=== PATIENT | female | born 1965 | race Caucasian/White ===

== ENCOUNTER 2017-05-13 22:18 | Emergency (ER) | payer OTHER ==
[2017-05-13] MEDS ORDERED: Ketorolac Tromethamine 60 MG/2 ML VIAL ONE (22:59)
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
== END 2017-05-13 23:15 | disposition home or self-care (01) ==
LOC: NAV ERS 22:18
DX: S63.502A Unspecified sprain of left wrist, initial encounter (principal); S20.212A Contusion of left front wall of thorax, initial encounter; F41.9 Anxiety disorder, unspecified; F31.9 Bipolar disorder, unspecified; F20.9 Schizophrenia, unspecified; F17.210 Nicotine dependence, cigarettes, uncomplicated; Y04.2XXA Assault by strike against or bumped into by another person, initial encounter
CPT/HCPCS: 71046; 96372; J1885

== ENCOUNTER 2017-06-05 13:08 | Emergency (ER) | payer OTHER ==
[2017-06-05] MEDS ORDERED: Ondansetron ODT 4 MG TAB ONE (13:39)
[2017-06-05] MEDS ORDERED: Meclizine HCl 25 MG TAB ONE (13:46)
== END 2017-06-05 14:15 | disposition home or self-care (01) ==
LOC: NAV ERS 13:08
DX: H81.10 Benign paroxysmal vertigo, unspecified ear (principal); B37.3 Candidiasis of vulva and vagina; B19.20 Unspecified viral hepatitis C without hepatic coma; F41.9 Anxiety disorder, unspecified; F31.9 Bipolar disorder, unspecified; F17.210 Nicotine dependence, cigarettes, uncomplicated
CPT/HCPCS: 36416; 93005; Q0162

== ENCOUNTER 2017-08-17 19:32 | Emergency (ER) | payer OTHER ==
[2017-08-17] MEDS ORDERED: Lidocaine 1% 20 ML MDV ONE (19:55)
[2017-08-17] MEDS ORDERED: Cephalexin 250 MG CAP ONE (20:30)
[2017-08-17] MEDS ORDERED: Sulfameth/Trimethoprim DS 800-160mg TAB ONE (20:30)
[2017-08-17] MEDS ORDERED: Ondansetron ODT 4 MG TAB ONE (20:35)
== END 2017-08-17 20:45 | disposition home or self-care (01) ==
LOC: NAV ERS 19:32
DX: L02.412 Cutaneous abscess of left axilla (principal); J44.9 Chronic obstructive pulmonary disease, unspecified; F41.9 Anxiety disorder, unspecified; F31.9 Bipolar disorder, unspecified; F17.210 Nicotine dependence, cigarettes, uncomplicated; Z79.899 Other long term (current) drug therapy
CPT/HCPCS: 10061; J2001; Q0162

== ENCOUNTER 2017-12-15 09:10 | Emergency (ER) | payer OTHER ==
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
== END 2017-12-15 10:10 | disposition home or self-care (01) ==
LOC: NAV ERS 09:10
DX: S51.812A Laceration without foreign body of left forearm, initial encounter (principal); F41.9 Anxiety disorder, unspecified; F31.9 Bipolar disorder, unspecified; F20.9 Schizophrenia, unspecified; F17.210 Nicotine dependence, cigarettes, uncomplicated; J44.9 Chronic obstructive pulmonary disease, unspecified; W22.8XXA Striking against or struck by other objects, initial encounter

== ENCOUNTER 2018-02-02 06:33 | Emergency (ER) | payer OTHER | END 2018-02-02 06:55 | disposition home or self-care (01) | LOC: NAV ERS 06:33 | DX: K02.9 Dental caries, unspecified (principal); J44.9 Chronic obstructive pulmonary disease, unspecified; F41.9 Anxiety disorder, unspecified; F31.9 Bipolar disorder, unspecified; F20.9 Schizophrenia, unspecified; F17.210 Nicotine dependence, cigarettes, uncomplicated | CPT/HCPCS: 99282 ==

== ENCOUNTER 2018-02-15 08:55 | Emergency (ER) | payer OTHER ==
[2018-02-15] MEDS ORDERED: diphenhydrAMINE 50 MG/ML VIAL ONE (09:15)
[2018-02-15] MEDS ORDERED: Metoclopramide HCl 10 MG/2 ML VIAL ONE (09:16)
== END 2018-02-15 09:30 | disposition home or self-care (01) ==
LOC: NAV ERS 08:55
DX: R51 Headache (principal); R11.2 Nausea with vomiting, unspecified; K08.89 Other specified disorders of teeth and supporting structures; J44.9 Chronic obstructive pulmonary disease, unspecified; F31.9 Bipolar disorder, unspecified; F41.9 Anxiety disorder, unspecified; F20.9 Schizophrenia, unspecified; F17.210 Nicotine dependence, cigarettes, uncomplicated
CPT/HCPCS: 96372; J1200; J2765

== ENCOUNTER 2018-03-20 10:25 | Emergency (ER) | payer OTHER | END 2018-03-20 10:57 | disposition home or self-care (01) | LOC: NAV ERS 10:25 | DX: M25.511 Pain in right shoulder (principal); J44.9 Chronic obstructive pulmonary disease, unspecified; F31.9 Bipolar disorder, unspecified; F17.210 Nicotine dependence, cigarettes, uncomplicated; F41.9 Anxiety disorder, unspecified | CPT/HCPCS: 99281 ==

== ENCOUNTER 2018-06-17 09:43 | Emergency (ER) | payer MEDICAID, OTHER | END 2018-06-17 10:28 | disposition home or self-care (01) | LOC: NAV ERS 09:43 | DX: J30.1 Allergic rhinitis due to pollen (principal); J44.9 Chronic obstructive pulmonary disease, unspecified; F31.9 Bipolar disorder, unspecified; F41.9 Anxiety disorder, unspecified; F20.9 Schizophrenia, unspecified; F17.210 Nicotine dependence, cigarettes, uncomplicated | CPT/HCPCS: 99283 ==

== ENCOUNTER 2018-10-28 10:25 | Emergency (ER) | payer OTHER | END 2018-10-28 10:40 | disposition home or self-care (01) | LOC: NAV ERS 10:25 | DX: R21 Rash and other nonspecific skin eruption (principal); F41.9 Anxiety disorder, unspecified; F31.9 Bipolar disorder, unspecified; F20.9 Schizophrenia, unspecified; F17.210 Nicotine dependence, cigarettes, uncomplicated; Z79.899 Other long term (current) drug therapy | CPT/HCPCS: 99281 ==

== ENCOUNTER 2018-11-15 09:51 | Emergency (ER) | payer OTHER | END 2018-11-15 10:40 | disposition home or self-care (01) | LOC: NAV ERS 09:51 | DX: K02.9 Dental caries, unspecified (principal); J44.9 Chronic obstructive pulmonary disease, unspecified; F41.9 Anxiety disorder, unspecified; F31.9 Bipolar disorder, unspecified; F20.9 Schizophrenia, unspecified; F17.210 Nicotine dependence, cigarettes, uncomplicated; Z79.899 Other long term (current) drug therapy | CPT/HCPCS: 99281 ==

== ENCOUNTER 2019-02-17 09:13 | Emergency (ER) | payer OTHER | END 2019-02-17 09:40 | disposition home or self-care (01) | LOC: NAV ERS 09:13 | DX: L03.012 Cellulitis of left finger (principal); J45.909 Unspecified asthma, uncomplicated; F41.9 Anxiety disorder, unspecified; F31.9 Bipolar disorder, unspecified; F20.9 Schizophrenia, unspecified; F17.210 Nicotine dependence, cigarettes, uncomplicated; Z48.02 Encounter for removal of sutures | CPT/HCPCS: 99282 ==

== ENCOUNTER 2019-03-04 09:46 | Emergency (ER) | payer OTHER | END 2019-03-04 10:19 | disposition home or self-care (01) | LOC: NAV ERS 09:46 | DX: T81.40XA Infection following a procedure, unspecified, initial encounter (principal); R11.2 Nausea with vomiting, unspecified; J44.9 Chronic obstructive pulmonary disease, unspecified; F41.9 Anxiety disorder, unspecified; F31.9 Bipolar disorder, unspecified; F20.9 Schizophrenia, unspecified; F17.210 Nicotine dependence, cigarettes, uncomplicated | CPT/HCPCS: 99283 ==

== ENCOUNTER 2019-03-27 18:18 | Emergency (ER) | payer OTHER ==
[2019-03-27] MEDS ORDERED: Ketorolac Tromethamine 60 MG/2 ML VIAL ONE (18:32)
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
== END 2019-03-27 20:00 | disposition home or self-care (01) ==
LOC: NAV ERS 18:18
DX: S22.32XA Fracture of one rib, left side, initial encounter for closed fracture (principal); J44.9 Chronic obstructive pulmonary disease, unspecified; F41.9 Anxiety disorder, unspecified; F31.9 Bipolar disorder, unspecified; F20.9 Schizophrenia, unspecified; F17.210 Nicotine dependence, cigarettes, uncomplicated; Z71.6 Tobacco abuse counseling; W01.198A Fall on same level from slipping, tripping and stumbling with subsequent striking against other object, initial encounter
CPT/HCPCS: 96372; 99406; J1885

== ENCOUNTER 2019-04-01 14:35 | Emergency (ER) | payer OTHER ==
[2019-04-01] MEDS ORDERED: Ketorolac Tromethamine 30 MG/ML VIAL ONE (14:51)
== END 2019-04-01 15:07 | disposition home or self-care (01) ==
LOC: NAV ERS 14:35
DX: R07.81 Pleurodynia (principal); G89.18 Other acute postprocedural pain; I10 Essential (primary) hypertension; J44.9 Chronic obstructive pulmonary disease, unspecified; F41.9 Anxiety disorder, unspecified; F31.9 Bipolar disorder, unspecified; F20.9 Schizophrenia, unspecified; F17.210 Nicotine dependence, cigarettes, uncomplicated
CPT/HCPCS: 96372; 99283; J1885

== ENCOUNTER 2019-04-08 13:19 | Emergency (ER) | payer OTHER ==
[2019-04-08] MEDS ORDERED: Sulfameth/Trimethoprim DS 800-160mg TAB ONE (13:36)
== END 2019-04-08 13:38 | disposition home or self-care (01) ==
LOC: NAV ERS 13:19
DX: L02.412 Cutaneous abscess of left axilla (principal); J44.9 Chronic obstructive pulmonary disease, unspecified; F41.9 Anxiety disorder, unspecified; F31.9 Bipolar disorder, unspecified; F20.9 Schizophrenia, unspecified; F17.210 Nicotine dependence, cigarettes, uncomplicated
CPT/HCPCS: 87070; 87077; 87186; 87205; 99283

== ENCOUNTER 2019-05-17 20:35 | Emergency (ER) | payer OTHER ==
[2019-05-17] MEDS ORDERED: Ondansetron ODT 4 MG TAB ONE (21:37)
[2019-05-17 21:51] LABS: Anisocytosis MODERATE=16-30 cells (100X) (0-5/hpf); Band 6 % (5-11); Burr Cells SLIGHT = 2-5 cells (100X) (0-1/hpf); Eosinophils 3 % (0-10); Hemoglobin 9.2 g/dL (12.0-16.0); Hypochromia MODERATE=16-30 cells (100X) (0-5/hpf); Lymphocytes 45 % (21-51); MDiff Complete? YES; Mean Corpuscular HGB CONC 29.5 g/dL (32.0-36.0); Mean Corpuscular Hemoglobin 21.1 pg (27.0-31.0); Mean Corpuscular Volume 71.7 fL (78.0-98.0); Mean Platelet Volume 6.3 fL (7.4-10.4); Microcytosis MODERATE=15-30 cells (100X) (0-5/hpf); Monocytes 2 % (0-10); Neutrophil 34 % (42-75); Platelet Count 600 thou/uL (130-400); Platelet Morphology Comment Appears Increased; Poikilocytosis MODERATE=16-30 cells (100X) (0-5/hpf); RBC Distribution Width 18.1 % (11.5-14.5); Reactive Lymphocytes 10 % (0-10); Red Blood Cell (RBC) Count 4.37 mill/uL (4.20-5.40); Spherocytes SLIGHT = 1-5 cells (100X) (None Seen); Target Cells SLIGHT = 2-5 cells (100X) (0-1/hpf); White Blood Cell (WBC) Count 10.8 thou/uL (4.8-10.8)
[2019-05-17 21:58] LABS: ALT (SGPT) 32 U/L (8-55); AST (SGOT) 33 U/L (5-34); Albumin 3.6 g/dL (3.5-5.0); Alkaline Phosphatase 131 U/L (40-110); Anion Gap 13 mmol/L (10-20); BUN (Urea Nitrogen) 14 mg/dL (9.8-20.1); Bilirubin, Total 0.2 mg/dL (0.2-1.2); Calc. Creatinine Clearance 0 mL/min (70-130); Calcium 8.8 mg/dL (7.8-10.44); Carbon Dioxide 24 mmol/L (22-29); Chloride 106 mmol/L (98-107); Estimated GFR-MDRD Greater than 90; Globulin 3.4 g/dL (2.4-3.5); Glucose 116 mg/dL (70-105); Potassium 3.5 mmol/L (3.5-5.1); Sodium 139 mmol/L (136-145)
== END 2019-05-17 22:08 | disposition home or self-care (01) ==
LOC: NAV ERS 20:35
DX: M79.10 Myalgia, unspecified site (principal); I10 Essential (primary) hypertension; J44.9 Chronic obstructive pulmonary disease, unspecified; F31.9 Bipolar disorder, unspecified; F41.9 Anxiety disorder, unspecified; F20.9 Schizophrenia, unspecified; F17.210 Nicotine dependence, cigarettes, uncomplicated; Z79.899 Other long term (current) drug therapy; G56.03 Carpal tunnel syndrome, bilateral upper limbs
CPT/HCPCS: 36415; 80053; 85025; 99283; Q0162

== ENCOUNTER 2019-06-29 13:29 | Emergency (ER) | payer OTHER ==
--- NOTE | 2019-06-29 14:12 | RAD ---
EXAM: Chest 2 views: HISTORY: Dyspnea COMPARISON: 05/13/2017 FINDINGS: There is a normal-sized cardiomediastinal silhouette. There is no evidence of consolidation, mass, or pleural effusion. Patient is status post right shoulder arthroplasty. IMPRESSION: No evidence of acute cardiopulmonary disease
== END 2019-06-29 14:45 | disposition home or self-care (01) ==
LOC: NAV ERS 13:29
DX: J06.9 Acute upper respiratory infection, unspecified (principal); F31.9 Bipolar disorder, unspecified; F41.9 Anxiety disorder, unspecified; F20.9 Schizophrenia, unspecified; F17.210 Nicotine dependence, cigarettes, uncomplicated; Z79.899 Other long term (current) drug therapy
CPT/HCPCS: 71046; 87081; 87430; 87804

== ENCOUNTER → 2019-07-03 | Emergency (ER) | payer OTHER ==
--- NOTE | 2019-07-03 20:22 | RAD ---
EXAM: 3 views of the right shoulder HISTORY: Shoulder pain COMPARISON: None FINDINGS: The patient is status post right shoulder arthroplasty without perihardware lucency or frac ture. Surgical changes are also seen near the acromioclavicular joint. The visualized thorax is unremarkable. IMPRESSION: No evidence of acute osseous abnormality.
--- NOTE | 2019-07-03 20:41 | RAD ---
EXAM: 2 views of the right humerus HISTORY: right arm pain COMPARISON: None FINDINGS: 2 views of the right humerus shows no evidence of acute fracture or dislocation. The patien t has a right shoulder prosthesis. There is lucency along the lateral aspect of the proximal humeral stem but this is likely chronic rather than acute. No soft tissue swelling is seen. IMPRESSION: No evidence of acute osseous abnormality.
== END ==
LOC: NAV ERS 19:27
DX: S40.011A Contusion of right shoulder, initial encounter (principal); J44.9 Chronic obstructive pulmonary disease, unspecified; F41.9 Anxiety disorder, unspecified; F31.9 Bipolar disorder, unspecified; F17.210 Nicotine dependence, cigarettes, uncomplicated; Z79.1 Long term (current) use of non-steroidal anti-inflammatories (NSAID); W06.XXXA Fall from bed, initial encounter

== ENCOUNTER 2019-11-19 14:55 | Emergency (ER) | payer OTHER | END 2019-11-19 15:35 | disposition home or self-care (01) | LOC: NAV ERS 14:55 | DX: S46.911A Strain of unspecified muscle, fascia and tendon at shoulder and upper arm level, right arm, initial encounter (principal); S96.811A Strain of other specified muscles and tendons at ankle and foot level, right foot, initial encounter; M19.011 Primary osteoarthritis, right shoulder; F17.210 Nicotine dependence, cigarettes, uncomplicated | CPT/HCPCS: 99283 ==

== ENCOUNTER 2020-02-26 10:51 | Emergency (ER) | payer OTHER ==
[2020-02-26] MEDS ORDERED: Metoclopramide HCl 10 MG/2 ML VIAL ONE (11:15)
[2020-02-26] MEDS ORDERED: Sodium Chloride 0.9% 1,000 ML ONE (11:15)
[2020-02-26 11:53] LABS: Bilirubin Negative (Negative); Blood, Urine Negative (Negative); Clarity Clear (Clear); Glucose, Urine (Dipstick) Negative (Negative); Ketone, Urine Negative (Negative); Leukocyte Negative (Negative); Nitrite Negative (Negative); Protein, Urine (Dipstick) Negative (Neg-Trace); Specific Gravity, Urine 1.025 (1.005-1.030)
[2020-02-26 11:59] LABS: Hemoglobin 11.2 g/dL (12.0-16.0); Mean Corpuscular HGB CONC 29.9 g/dL (32.0-36.0); Mean Corpuscular Hemoglobin 21.5 pg (27.0-31.0); Mean Corpuscular Volume 71.9 fL (78.0-98.0); Mean Platelet Volume 5.8 fL (7.4-10.4); Platelet Count 727 thou/uL (130-400); RBC Distribution Width 16.7 % (11.5-14.5); Red Blood Cell (RBC) Count 5.22 mill/uL (4.20-5.40); White Blood Cell (WBC) Count 11.7 thou/uL (4.8-10.8)
[2020-02-26 12:04] LABS: ALT (SGPT) 31 U/L (8-55); AST (SGOT) 50 U/L (5-34); Albumin 3.8 g/dL (3.5-5.0); Alkaline Phosphatase 90 U/L (40-110); Anion Gap 15 mmol/L (10-20); BUN (Urea Nitrogen) 16 mg/dL (9.8-20.1); Bilirubin, Total 0.3 mg/dL (0.2-1.2); CK (CPK) 38 U/L (29-168); Calc. Creatinine Clearance 0 mL/min (70-130); Calcium 9.1 mg/dL (7.8-10.44); Carbon Dioxide 27 mmol/L (22-29); Chloride 97 mmol/L (98-107); Estimated GFR-MDRD 83; Globulin 4.2 g/dL (2.4-3.5); Glucose 102 mg/dL (70-105); Lipase 29 U/L (8-78); Potassium 3.1 mmol/L (3.5-5.1); Sodium 136 mmol/L (136-145)
[2020-02-26] MEDS ORDERED: Potassium Chloride 20 MEQ TAB ONE (12:13)
[2020-02-26 12:26] LABS: #Basophils 0.2 thou/uL (0.0-0.2); #Eosinphils 0.4 thou/uL (0.0-0.7); #Monocytes 1.6 thou/uL (0.11-0.59); #Neutrophils 4.6 thou/uL (1.40-6.50); %Basophils 1.6 % (0.0-1.0); %Eosinophils 3.2 % (0.0-10.0); %Lymphocytes 42.8 % (21.0-51.0); %Monocytes 13.4 % (0.0-10.0); %Neutrophils 39.1 % (42.0-75.0); Anisocytosis SLIGHT = 6-15 cells (100X) (0-5/hpf); Band 1 % (5-11); Eosinophils 2 % (0-10); Hypochromia SLIGHT = 6-15 cells (100X) (0-5/hpf); Large Platelets SLIGHT; Lymphocytes 48 % (21-51); MDiff Complete? YES; Microcytosis MODERATE=15-30 cells (100X) (0-5/hpf); Monocytes 12 % (0-10); Neutrophil 37 % (42-75); Platelet Morphology Comment Appears Increased
[2020-02-27 15:08] LABS: SARS-CoV-2 MS2 Positive; SARS-CoV-2 N Gene Negative; SARS-CoV-2 S Gene Negative; SARS-CoV-2 by NAA Not Detected (NotDetected); SARS-CoV-2 orf1ab Negative
== END 2020-02-26 12:40 | disposition home or self-care (01) ==
LOC: NAV ERS 10:51
DX: R10.13 Epigastric pain (principal); R11.2 Nausea with vomiting, unspecified; R51.9 Headache, unspecified; Z20.828 Contact with and (suspected) exposure to other viral communicable diseases; I10 Essential (primary) hypertension; J44.9 Chronic obstructive pulmonary disease, unspecified; F41.9 Anxiety disorder, unspecified; F17.210 Nicotine dependence, cigarettes, uncomplicated
CPT/HCPCS: 80053; 81003; 82550; 83690; 84484; 85025; 87635; 93005; 94760; 96365; J2765; J7050; U0003

== ENCOUNTER 2020-03-05 09:15 | Emergency (ER) | payer OTHER | END 2020-03-05 09:33 | disposition left against medical advice (07) | LOC: NAV ERS 09:15 | DX: Z53.21 Procedure and treatment not carried out due to patient leaving prior to being seen by health care provider (principal) ==

== ENCOUNTER 2020-05-19 15:06 | Emergency (ER) | payer OTHER | END 2020-05-19 15:35 | disposition home or self-care (01) | LOC: NAV ERS 15:06 | DX: L30.9 Dermatitis, unspecified (principal); T14.8XXA Other injury of unspecified body region, initial encounter; G47.00 Insomnia, unspecified; I10 Essential (primary) hypertension | CPT/HCPCS: 99282 ==

== ENCOUNTER 2020-06-17 20:13 | Emergency (ER) | payer OTHER ==
[2020-06-17] MEDS ORDERED: Acetaminophen/Codeine 30-300mg Tablet ONE (20:44)
== END 2020-06-17 20:50 | disposition home or self-care (01) ==
LOC: NAV ERS 20:13
DX: K04.4 Acute apical periodontitis of pulpal origin (principal); K02.9 Dental caries, unspecified; I10 Essential (primary) hypertension; F17.210 Nicotine dependence, cigarettes, uncomplicated; Z79.899 Other long term (current) drug therapy
CPT/HCPCS: 99282

== ENCOUNTER 2020-08-01 08:58 | Emergency (ER) | payer OTHER | END 2020-08-01 09:30 | disposition home or self-care (01) | LOC: NAV ERS 08:58 | DX: K04.7 Periapical abscess without sinus (principal); K02.9 Dental caries, unspecified; I10 Essential (primary) hypertension; F17.210 Nicotine dependence, cigarettes, uncomplicated | CPT/HCPCS: 99283 ==

== ENCOUNTER 2020-09-06 11:26 | Emergency (ER) | payer OTHER | END 2020-09-06 11:56 | disposition left against medical advice (07) | LOC: NAV ERS 11:26 | DX: Z79.899 Other long term (current) drug therapy (principal); I10 Essential (primary) hypertension; F17.210 Nicotine dependence, cigarettes, uncomplicated ==

== ENCOUNTER 2020-10-30 08:31 | Emergency (ER) | payer OTHER | END 2020-10-30 09:11 | disposition home or self-care (01) | LOC: NAV ERS 08:31 | DX: F42.4 Excoriation (skin-picking) disorder (principal); I10 Essential (primary) hypertension; F17.210 Nicotine dependence, cigarettes, uncomplicated | CPT/HCPCS: 99282 ==

== ENCOUNTER 2020-11-05 07:30 | Emergency (ER) | payer OTHER ==
[2020-11-05 14:06] LABS: SARS-CoV-2 PCR by NAA Not Detected (NotDetected)
== END 2020-11-05 08:00 | disposition home or self-care (01) ==
LOC: NAV ERS 07:30
DX: R05 Cough (principal); R50.9 Fever, unspecified; R09.89 Other specified symptoms and signs involving the circulatory and respiratory systems; Z20.822 Contact with and (suspected) exposure to COVID-19
CPT/HCPCS: 99283; U0003; U0005

== ENCOUNTER 2020-12-11 09:09 | Emergency (ER) | payer OTHER ==
[2020-12-11 10:06] LABS: Bilirubin Negative (Negative); Blood, Urine Negative (Negative); Clarity Clear (Clear); Glucose, Urine (Dipstick) Negative (Negative); Ketone, Urine Negative (Negative); Leukocyte Negative (Negative); Nitrite Negative (Negative); Protein, Urine (Dipstick) Trace mg/dL (Neg-Trace); Urobilinogen 0.2 mg/dL (Less than 2)
[2020-12-11] MEDS ORDERED: Ketorolac Tromethamine 30 MG/ML VIAL ONE (10:07)
== END 2020-12-11 10:23 | disposition home or self-care (01) ==
LOC: NAV ERS 09:09
DX: M54.5 Low back pain (principal); I10 Essential (primary) hypertension; F17.210 Nicotine dependence, cigarettes, uncomplicated
CPT/HCPCS: 81003; 96372; 99283; J1885

== ENCOUNTER 2021-01-14 09:52 | Emergency (ER) | payer OTHER | END 2021-01-14 11:00 | disposition home or self-care (01) | LOC: NAV ERS 09:52 | DX: M25.552 Pain in left hip (principal); K08.89 Other specified disorders of teeth and supporting structures; K04.7 Periapical abscess without sinus; H92.02 Otalgia, left ear; I10 Essential (primary) hypertension; F17.210 Nicotine dependence, cigarettes, uncomplicated | CPT/HCPCS: 99281 ==

== ENCOUNTER 2021-04-05 07:40 | Emergency (ER) | payer OTHER ==
[2021-04-05] MEDS ORDERED: Ondansetron ODT 4 MG TAB ONE (08:28)
== END 2021-04-05 08:33 | disposition home or self-care (01) ==
LOC: NAV ERS 07:40
DX: J30.9 Allergic rhinitis, unspecified (principal); J32.9 Chronic sinusitis, unspecified; R11.2 Nausea with vomiting, unspecified; I10 Essential (primary) hypertension; F17.210 Nicotine dependence, cigarettes, uncomplicated; Z79.899 Other long term (current) drug therapy
CPT/HCPCS: 99283; Q0162

== ENCOUNTER 2021-08-09 19:20 | Emergency (ER) | payer OTHER ==
[2021-08-09] MEDS ORDERED: Orphenadrine Citrate 60 MG/2 ML VIAL ONE (19:50)
== END 2021-08-09 20:10 | disposition home or self-care (01) ==
LOC: NAV ERS 19:20
DX: M54.42 Lumbago with sciatica, left side (principal); I10 Essential (primary) hypertension; F17.210 Nicotine dependence, cigarettes, uncomplicated
CPT/HCPCS: 96372; 99283; J2360

== ENCOUNTER 2021-08-20 09:25 | Emergency (ER) | payer OTHER | END 2021-08-20 10:55 | disposition home or self-care (01) | LOC: NAV ERS 09:25 | DX: R25.2 Cramp and spasm (principal); I10 Essential (primary) hypertension; J44.9 Chronic obstructive pulmonary disease, unspecified; F17.210 Nicotine dependence, cigarettes, uncomplicated; Z79.899 Other long term (current) drug therapy | CPT/HCPCS: 99283 ==

== ENCOUNTER 2022-02-21 09:44 | Emergency (ER) | payer OTHER ==
[2022-02-21 11:28] LABS: #Basophils 0.2 thou/uL (0.0-0.2); #Eosinphils 0.3 thou/uL (0.0-0.7); #Lymphocytes 4.3 thou/uL (1.20-3.40); #Neutrophils 3.3 thou/uL (1.40-6.50); %Basophils 1.9 % (0.0-1.0); %Eosinophils 3.4 % (0.0-10.0); %Lymphocytes 47.2 % (21.0-51.0); %Neutrophils 36.4 % (42.0-75.0); Hemoglobin 10.1 g/dL (12.0-16.0); Mean Corpuscular HGB CONC 29.5 g/dL (32.0-36.0); Mean Corpuscular Hemoglobin 22.8 pg (27.0-31.0); Mean Corpuscular Volume 77.4 fl (78.0-98.0); Mean Platelet Volume 6.3 fL (7.4-10.4); Platelet Count 506 10x3/uL (130-400); RBC Distribution Width 16.6 % (11.5-14.5); Red Blood Cell (RBC) Count 4.43 mill/uL (4.20-5.40); White Blood Cell (WBC) Count 9.2 10x3/uL (4.8-10.8)
[2022-02-21 11:30] LABS: Acetaminophen Less than 10.0 mcg/mL (10.0-30.0); Alcohol Less than 10 mg/dL (Less than 10); Salicylate Less than 8.0 mg/dL (15.0-30.0)
[2022-02-21 11:32] LABS: ALT (SGPT) 27 U/L (8-55); AST (SGOT) 32 U/L (5-34); Albumin 3.9 g/dL (3.5-5.0); Alkaline Phosphatase 113 U/L (40-110); Anion Gap 12 mmol/L (10-20); BUN (Urea Nitrogen) 8 mg/dL (9.8-20.1); Bilirubin, Total 0.4 mg/dL (0.2-1.2); Calc. Creatinine Clearance 0 mL/min (70-130); Calcium 9.4 mg/dL (7.8-10.44); Carbon Dioxide 26 mmol/L (22-29); Chloride 104 mmol/L (98-107); Estimated GFR 106; Globulin 3.2 g/dL (2.4-3.5); Glucose 100 mg/dL (70-105); Potassium 3.9 mmol/L (3.5-5.1); Protein, Total 7.1 g/dL (6.0-8.3); Sodium 138 mmol/L (136-145)
[2022-02-21] MEDS ORDERED: Acetaminophen 500 MG TAB ONE (11:42)
[2022-02-21 11:46] LABS: Bilirubin Negative (Negative); Blood, Urine Negative (Negative); Clarity Clear (Clear); Glucose, Urine (Dipstick) Negative (Negative); Ketone, Urine Negative (Negative); Leukocyte Trace (Negative); Nitrite Negative (Negative); Protein, Urine (Dipstick) 30 mg/dL (Neg-Trace); pH, Urine 6.5 (5.0-9.0)
[2022-02-21 11:51] LABS: Specific Gravity, Urine 1.024 (1.002-1.036)
[2022-02-21 11:55] LABS: RBC/HPF None Seen HPF (0-3)
[2022-02-21 11:56] LABS: Bacteria/HPF Rare-Few HPF (None Seen); WBC/HPF 0-3 HPF (0-3)
[2022-02-21 11:58] LABS: Cocaine Metabolite Screen Detected (NotDetected); Phencyclidine (PCP) Not Detected (NotDetected); THC/Cannabinoid Screen Detected (NotDetected)
[2022-02-21 11:59] LABS: Amphetamine Not Detected (NotDetected); Barbiturates Screen Not Detected (NotDetected); Benzodiazepine Screen Not Detected (NotDetected); Medtox Control Line Valid? VALID (VALID); Methadone Not Detected (NotDetected); Methamphetamine Not Detected (NotDetected); Opiate Screen Not Detected (NotDetected); Oxycodone Screen Not Detected (NotDetected); Tricyclic Screen Not Detected (NotDetected)
[2022-02-21] MEDS ORDERED: Ondansetron ODT 4 MG TAB ONE (12:08)
[2022-02-21 13:37] LABS: SARS-CoV-2 NAA Rapid Test Not Detected (NotDetected)
== END 2022-02-21 18:55 ==
LOC: NAV ERS 09:44
DX: S40.812A Abrasion of left upper arm, initial encounter (principal); S40.811A Abrasion of right upper arm, initial encounter; F12.90 Cannabis use, unspecified, uncomplicated; F14.10 Cocaine abuse, uncomplicated; R22.43 Localized swelling, mass and lump, lower limb, bilateral; D64.9 Anemia, unspecified; F17.210 Nicotine dependence, cigarettes, uncomplicated; I10 Essential (primary) hypertension; J45.909 Unspecified asthma, uncomplicated; X58.XXXA Exposure to other specified factors, initial encounter; Z79.899 Other long term (current) drug therapy; Z20.822 Contact with and (suspected) exposure to COVID-19
CPT/HCPCS: 80053; 80306; 80307; 81003; 81015; 84443; 85025; 99285; Q0162; U0002

== ENCOUNTER 2022-06-20 09:29 | Emergency (ER) | payer OTHER ==
[2022-06-20] MEDS ORDERED: Hydrocortisone 1% Cream 30 GM TUBE TOP SCH (10:30)
== END 2022-06-20 10:30 | disposition home or self-care (01) ==
LOC: NAV ERS 09:29
DX: T78.40XA Allergy, unspecified, initial encounter (principal); R59.0 Localized enlarged lymph nodes; I10 Essential (primary) hypertension; J44.9 Chronic obstructive pulmonary disease, unspecified; F17.210 Nicotine dependence, cigarettes, uncomplicated
CPT/HCPCS: 99283

== ENCOUNTER 2022-10-19 11:27 | Emergency (ER) | payer OTHER ==
[2022-10-19] MEDS ORDERED: Ketorolac Tromethamine 30 MG/ML VIAL ONE (11:49)
== END 2022-10-19 12:05 | disposition home or self-care (01) ==
LOC: NAV ERS 11:27
DX: K02.9 Dental caries, unspecified (principal); K04.7 Periapical abscess without sinus; I10 Essential (primary) hypertension; J44.9 Chronic obstructive pulmonary disease, unspecified; F17.210 Nicotine dependence, cigarettes, uncomplicated
CPT/HCPCS: 96372; 99282; J1885

== ENCOUNTER 2023-03-18 11:49 | Emergency (ER) | payer OTHER | END 2023-03-18 12:37 | disposition home or self-care (01) | LOC: NAV ERS 11:49 | DX: K04.7 Periapical abscess without sinus (principal); L30.9 Dermatitis, unspecified; F17.210 Nicotine dependence, cigarettes, uncomplicated; J45.909 Unspecified asthma, uncomplicated | CPT/HCPCS: 99282 ==

== ENCOUNTER 2023-05-21 10:45 | Emergency (ER) | payer OTHER ==
[2023-05-21] MEDS ORDERED: Ondansetron ODT 4 MG TAB ONE (11:10)
[2023-05-21] MEDS ORDERED: Dexamethasone 4 mg/ml Vial ONE (11:12)
== END 2023-05-21 11:22 | disposition home or self-care (01) ==
LOC: NAV ERS 10:45
DX: J01.10 Acute frontal sinusitis, unspecified (principal); J44.9 Chronic obstructive pulmonary disease, unspecified; F17.210 Nicotine dependence, cigarettes, uncomplicated
CPT/HCPCS: 96372; 99283; J1100; Q0162

== ENCOUNTER 2023-06-22 12:28 | Emergency (ER) | payer OTHER ==
[2023-06-22] MEDS ORDERED: Ketorolac Tromethamine 60 MG/2 ML VIAL ONE (13:02)
[2023-06-22] MEDS ORDERED: Cephalexin 250 MG CAP ONE (13:02)
== END 2023-06-22 13:15 | disposition home or self-care (01) ==
LOC: NAV ERS 12:28
DX: K04.7 Periapical abscess without sinus (principal); R03.0 Elevated blood-pressure reading, without diagnosis of hypertension; J44.9 Chronic obstructive pulmonary disease, unspecified; F17.210 Nicotine dependence, cigarettes, uncomplicated
CPT/HCPCS: 96372; 99282; J1885